=== PATIENT | male | born 1995 | race Caucasian/White ===

== ENCOUNTER 2025-09-04 07:06 | Emergency (ER) | payer OTHER ==
[~2025-09-04] VITALS: Ht 170.2 cm; Wt 76.6 kg
[2025-09-04 07:07] VITALS: TEMP 98.1
[2025-09-04 08:40] LABS: BASO # 0.0 10^3/uL (0.0-0.2); BASO % 0.2 % (0.0-1.0); EOS # 0.1 10^3/uL (0.0-0.5); EOS % 0.9 % (0.0-3.0); LYMPH # 2.4 10^3/uL (1.5-5.0); LYMPH % 26.1 % (24.0-44.0); MONO # 0.6 10^3/uL (0.0-0.8); MONO % 6.7 % (2.0-8.0); NEUTROPHILS # 6.0 10^3/uL (1.5-8.5); NEUTROPHILS % 65.9 % (36.0-66.0); PLATELET COUNT, AUTOMATED 228 10^3/uL (150-450)
[2025-09-04] MEDS: ONDANSETRON 4MG 2ML VIAL IV ONE (08:40)
[2025-09-04] MEDS: NS (Normal Saline) 0.9% 1,000 ML IV ONE (08:40)
[2025-09-04 09:06] LABS: ETHYL ALCOHOL (ETHANOL) < 0.003 % (0.000-0.010)
[2025-09-04 09:08] LABS: ALT/SGPT 26 U/L (7.0-40); AST/SGOT 26 U/L (<34); CALCIUM LEVEL 9.4 MG/DL (8.5-10.1); CARBON DIOXIDE LEVEL 27 MMOL/L (20-31); CHLORIDE LEVEL 103 MMOL/L (98-107); CK-MB VALUE MASS 1.3 NG/ML (<3.6); CREATININE FOR GFR 0.92 MG/DL (0.70-1.30); GLOMERULAR FILTRATION RATE > 90.0 (>60); POTASSIUM SERUM 3.9 MMOL/L (3.5-5.1); SODIUM LEVEL 142 MMOL/L (136-145)
[2025-09-04] MEDS ORDERED: ONDA-282 PO (09:20)
[2025-09-04 09:24] LABS: CPK CREATINE PHOSPHOKINASE 293 U/L (46-171); MB/CK RELATIVE INDEX 0.44 (< OR =4)
[2025-09-04 09:52] LABS: KETONE, URINE AUTO RFX NEGATIVE (NEGATIVE); LEUKOCYTE ESTERASE UR AUTO RFX NEGATIVE (NEGATIVE); NITRITE, URINE AUTO RFX NEGATIVE (NEGATIVE); RBC, URINE AUTO RFX 1 /HPF (0-3); SQUAM EPITHELIAL CELL UR AURFX 0 /HPF (0-6); WBC, URINE AUTO RFX 0 /HPF (0-3)
[2025-09-04 10:07] VITALS: BP 126/84; O2SAT 100
== END 2025-09-04 10:13 | disposition home or self-care (01) ==
LOC: M ED 07:06
DX: T51.0X1A Toxic effect of ethanol, accidental (unintentional), initial encounter (principal); Y92.9 Unspecified place or not applicable; Y93.9 Activity, unspecified; F17.290 Nicotine dependence, other tobacco product, uncomplicated
CPT/HCPCS: 70450; 72052; 80048; 80076; 81001; 82077; 82550; 82553; 83690; 84484; 85025; 93005; 96361; 96374; 99284; J2405